=== PATIENT | female | born 1980 | race Hispanic/Latino ===

== ENCOUNTER 2024-06-21 01:22 | Emergency (ER) | payer OTHER ==
[~2024-06-21] VITALS: Ht 165.1 cm; Wt 101.2 kg
[2024-06-21 01:23] VITALS: PULSE 100; RESP 22; TEMP 98.8; O2SAT 100
== END 2024-06-21 02:00 | disposition home or self-care (01) ==
LOC: ER 01:56
DX: M79.672 Pain in left foot (principal); M79.671 Pain in right foot; I73.9 Peripheral vascular disease, unspecified; I10 Essential (primary) hypertension; E11.9 Type 2 diabetes mellitus without complications; E78.5 Hyperlipidemia, unspecified; D64.9 Anemia, unspecified; E55.9 Vitamin D deficiency, unspecified; F17.210 Nicotine dependence, cigarettes, uncomplicated
CPT/HCPCS: 99282